=== PATIENT | female | born 1975 | race Caucasian/White ===

== ENCOUNTER 2022-02-22 06:04 | Day surgery (SDC) | payer OTHER ==
[~2022-02-22] VITALS: Ht 167.6 cm; Wt 99.2 kg
[2022-02-22] MEDS ORDERED: PRAV20 PO (06:32)
[2022-02-22] MEDS ORDERED: GEMF600 PO (06:33)
[2022-02-22] MEDS ORDERED: QUET300 PO (06:33)
[2022-02-22] MEDS ORDERED: PRED20 PO (06:34)
[2022-02-22] MEDS ORDERED: HYDPAM25 PO (06:34)
[2022-02-22] MEDS ORDERED: AMOCLA875 PO (06:35)
--- NOTE | 2022-02-22 06:59 | NUR ---
02/22/22 [address] ADDISON EXPIRATORY WHEEZES RIGHT SIDE. PHILIP NAIR ORDERED AND ADMINISTERED [id number]
--- NOTE | 2022-02-22 08:26 | NUR ---
02/22/22 0826 Osmin Lyman 1.5 ML'S 2% LIDOCAINE WITH EPI 1:100,000 DILUTED 1:1 WITH 1.5 ML'S 0.9% INJ NACL TO ACHIEVE SOLUTION OF 1% LIDOCAINE WITH EPI 1:200,000. SOLUTION VERIFIED BY ORSC.CARL AND ORSC.JJW. 3 ML'S OF 1% LIDOCAINE WITH EPI 1:200,[address] GRANADOS AT 0752.
== END 2022-02-22 11:05 | disposition home or self-care (01) ==
LOC: ORSCSDS 06:04
PROVIDERS: Otolaryngology
PROC: 8E09XBZ Computer Assisted Procedure of Head and Neck Region (ICD-10-PCS; principal; 2022-02-22 07:30)
PROC: 09DV4ZZ Extraction of Left Ethmoid Sinus, Percutaneous Endoscopic Approach (ICD-10-PCS; principal; 2022-02-22 07:30)
PROC: 09DU4ZZ Extraction of Right Ethmoid Sinus, Percutaneous Endoscopic Approach (ICD-10-PCS; principal; 2022-02-22 07:30)
DX: J32.4 Chronic pansinusitis (principal); E78.5 Hyperlipidemia, unspecified; Z87.891 Personal history of nicotine dependence; E66.9 Obesity, unspecified; Z68.35 Body mass index [BMI] 35.0-35.9, adult; Z79.899 Other long term (current) drug therapy
CPT/HCPCS: 88305; 88311; A9270; C2625; J0171; J1100; J2250; J2370; J2405; J2704; J3010; J7120

== ENCOUNTER 2024-07-31 06:11 | Day surgery (SDC) | payer OTHER ==
[~2024-07-31] VITALS: Ht 167.6 cm; Wt 95.5 kg
[2024-07-31] VITALS (13 sets, daily range): BP systolic 104–153; BP diastolic 56–99
[~2024-07-31 06:11] MED LIST: ALBU90OI INH; AMOCLA875 PO; GEMF600 PO; HYDPAM25 PO; PRAV20 PO; PRED20 PO; QUET300 PO; THERA-D2000 UNIT PO
[2024-07-31] MEDS ORDERED: CeFAZolin Sodium 2,000 MG in NS 100 ML IV SCH ×2 (06:35→14:00)
[2024-07-31] MEDS ORDERED: Lactated Ringer's 1,000 ML IV SCH ×2 (06:35→13:35)
[2024-07-31] MEDS ORDERED: FENO54 PO (06:42)
--- NOTE | 2024-07-31 07:01 | NUR ---
Ambulatory in Day Surgery History, Chart, Medications and Allergies reviewed before start of procedure.Lungs clear T/O to Auscultation. Patient confirms NPO status and agrees with scheduled surgery. Patient reports completing Chlorhexadine shower X2 prior to admission to hospital.Surgical site prepped with 2% Chlorhexidine cloth wipe. Patient States Post-Procedure ride home has been arranged.
[2024-07-31] MEDS ORDERED: Bupivacaine 0.5% HCl 5 MG/ML 30MLVIAL ONE (07:49)
[2024-07-31] MEDS ORDERED: Rocuronium Bromide 10 MG/ML 5ML Injection IV ONE ×3 (08:06→11:00)
[2024-07-31] MEDS ORDERED: FentaNYL Citrate 50 MCG/ML 5 ML Injection ONE (08:07)
[2024-07-31] MEDS ORDERED: propofoL 40 ML IV ONE (08:07)
[2024-07-31] MEDS ORDERED: Albuterol HFA200 ACT/6.7 GM INH ONE (08:22)
[2024-07-31] MEDS ORDERED: Albuterol HFA200 ACT/6.7 GM INH INH PRN (08:40)
[2024-07-31] MEDS ORDERED: Cholecalciferol 1000 Unit Tablet (=25MCG) PO SCH (09:00)
[2024-07-31] MEDS ORDERED: HydrOXYzine Pamoate 25 MG Cap PO SCH (09:00)
[2024-07-31] MEDS ORDERED: HYDROmorphone HCl/Pf 1MG SYR ONE ×2 (09:06→10:36)
[2024-07-31] MEDS ORDERED: Metoclopramide HCl 5MG / ML 2ML Vial ONE (09:40)
[2024-07-31] MEDS ORDERED: Ondansetron HCl 2 MG / ML 2ML Vial ONE (09:40)
[2024-07-31] MEDS ORDERED: Dexamethasone Sod Phos 10 MG/ML 1ML VIAL ONE (09:40)
[2024-07-31] MEDS ORDERED: FentaNYL Citrate 50 MCG/ML 2 ML Injection ONE (12:04)
[2024-07-31] MEDS ORDERED: Sugammadex Sodium 200 MG/2ML SDV (100 MG/ML) ONE (12:31)
[2024-07-31] MEDS ORDERED: HYDROmorphone HCl/Pf 1MG SYR IV PRN (13:30)
[2024-07-31] MEDS ORDERED: Promethazine HCl 12.5 MG Supp PR PRN (13:30)
[2024-07-31] MEDS ORDERED: Naloxone HCl 0.4MG / ML 1ML Vial IV PRN (13:35)
[2024-07-31] MEDS ORDERED: OxyCODONE 5 mg/Acetamin 325 mg TABLET PO PRN (13:35)
[2024-07-31] MEDS ORDERED: Simethicone 80 MG Chew PO PRN (13:35)
[2024-07-31] MEDS ORDERED: Ondansetron HCl 2 MG / ML 2ML Vial IV PRN (13:35)
[2024-07-31] MEDS ORDERED: Ondansetron 4 MG TAB PO PRN (13:35)
[2024-07-31] MEDS ORDERED: Promethazine HCl 25 MG Tab PO PRN (13:40)
[2024-07-31] MEDS ORDERED: Ketorolac Tromethamine 30mg Vial IV PRN (14:05)
--- NOTE | 2024-07-31 18:50 | NUR ---
SHIFT SUMMARY POD1 LAP HYSTER. PATIENT IS AOX4, AYESHA ORELLANA'D THIS EVENING. PATIENT ABLE TO VOID AND WALK IN ROOM SBA. LAP SITES X4 CLOSED WITH EXOFEN. C/D/I. TOLERATING SMALL AMOUNTS OF PO INTAKE. A FEW BOUGHTS OF NAUSEA TODAY MEDICATED WITH ZOFRAN. PATIENT VITALS SIGNS ARE STABLE AND NEEDS ARE MET AT THIS TIME. REPORT TO ONCOMING SHIFT.
[2024-07-31] MEDS ORDERED: Pravastatin Sodium 20 MG Tab PO SCH (21:00)
[2024-07-31] MEDS ORDERED: QUEtiapine Fumarate 300 MG Tab PO SCH (21:00)
[2024-08-01 04:13] VITALS: BP 110/63
[2024-08-01 04:51] LABS: BASOPHILS ABSOLUTE AUTO 0.15 K/mm3 (0.00-0.23); BASOPHILS PERCENT AUTO 1 % (0-2); EOSINOPHILS ABSOLUTE AUTO 0.08 K/mm3 (0.00-0.68); EOSINOPHILS PERCENT AUTO 1 % (0-6); Hematocrit 36.2 % (33.0-51.0); Hemoglobin 12.3 g/dL (11.5-16.0); IMMATURE GRAN ABSOLUTE AUTO 0.04 K/mm3 (0.00-0.10); IMMATURE GRAN PERCENT AUTO 0 % (0-1); LYMPHOCYTES ABSOLUTE AUTO 1.34 K/mm3 (0.84-5.20); LYMPHOCYTES PERCENT AUTO 9 % (21-46); MONOCYTES ABSOLUTE AUTO 1.03 K/mm3 (0.16-1.47); MONOCYTES PERCENT AUTO 7 % (4-13); Mean Corpuscular HGB 28.7 pg (26.0-34.0); Mean Corpuscular Volume 84 fL (80-100); Mean Platelet Volume 11.3 fL (9.1-12.4); NEUTROPHILS ABSOLUTE AUTO 12.23 K/mm3 (1.96-9.15); NEUTROPHILS PERCENT AUTO 82 % (41-73); Platelet Count 258 K/mm3 (150-400); RDW Coefficient Variation 13.3 % (11.7-14.2); RDW Standard Deviation 41.2 fL (35.1-46.3); Red Blood Cell Count 4.29 M/mm3 (3.80-5.20); White Blood Cell Count 14.87 K/mm3 (4.00-11.30)
[2024-08-01 07:26] VITALS: BP 115/62
--- NOTE | 2024-08-01 07:29 | NUR ---
SHIFT SUMMARY NOC. PT POD 1 FOR LAP/VAG ASSIST HYSTERECTOMY WITH DR. CASTELAN. PT LAP SITES X4 C/D/I. PT VOIDING URINE AND TOLERATING CLEAR LIQUIDS. PT REPORTS MILD NAUSEA BUT DENIES VOMITING. PT MEDICATED FOR PAIN WITH PERCOCET AND TORADOL WITH REPORTED RELIEF. PT REFUSED ABDOMINAL BINDER D/T PAIN. PT PASSING FLATUS THIS AM. CALL LIGHT IN REACH.
[2024-08-01] MEDS ORDERED: ESTR2 PO (08:59)
[2024-08-01] MEDS ORDERED: Fenofibrate 67 MG Cap PO SCH (09:00)
[2024-08-01] MEDS ORDERED: Percocet 5-3251 EACH PO (09:00)
[2024-08-01] MEDS ORDERED: Estradiol 1 MG Tab PO SCH (09:00)
--- NOTE | 2024-08-01 11:28 | NUR ---
DISCHARGE PATIENT IS TOLERATING PO INTAKE AND DENIES N/V. LAP SITES ARE C/D/I. MEDICATED FOR PAIN AND TOLERATING WELL. SCANT BLEEDING ON PERIPAD. ALL INSTRUCTIONS ARE READ AND SIGNED BY PATIENT. EDUCATED ON MEDS, AND ACTIVITIES AND FOLLOW UP CARE. PATIENT LEAVES WITH FAMILY PRIVATE CAR.
== END 2024-08-01 11:00 | disposition home or self-care (01) ==
LOC: ORSCMMR 06:11 → ORD 08:00 → ORSCMMR 08:00 → SURS 13:55 → ORSCMMR 13:55 → SURS 08-01 11:00 → ORSCMMR 08-01 11:00 → ORD 09-18 08:00
PROVIDERS: Obstetrics & Gynecology
PROC: 0JPV0HZ Removal of Contraceptive Device from Upper Extremity Subcutaneous Tissue and Fascia, Open Approach (ICD-10-PCS; principal; 2024-07-31 08:00)
PROC: 0DNU4ZZ Release Omentum, Percutaneous Endoscopic Approach (ICD-10-PCS; principal; 2024-07-31 08:00)
PROC: 0UB24ZZ Excision of Bilateral Ovaries, Percutaneous Endoscopic Approach (ICD-10-PCS; principal; 2024-07-31 08:00)
PROC: 0UT94ZZ Resection of Uterus, Percutaneous Endoscopic Approach (ICD-10-PCS; principal; 2024-07-31 08:00)
PROC: 0UB74ZZ Excision of Bilateral Fallopian Tubes, Percutaneous Endoscopic Approach (ICD-10-PCS; principal; 2024-07-31 08:00)
DX: N92.1 Excessive and frequent menstruation with irregular cycle (principal); N80.03 Adenomyosis of the uterus; D25.9 Leiomyoma of uterus, unspecified; N88.8 Other specified noninflammatory disorders of cervix uteri; J45.909 Unspecified asthma, uncomplicated; F31.9 Bipolar disorder, unspecified; Z79.899 Other long term (current) drug therapy
CPT/HCPCS: 36415; 85025; 86850; 86900; 86901; 88307; 94640; 94664; 94760; A9270; J0690; J1100; J1170; J1885; J2405; J2704; J2765; J3010; J7120; Q0177

== ENCOUNTER 2024-12-01 17:20 | Emergency (ER) | payer OTHER ==
[~2024-12-01] VITALS: Ht 167.6 cm; Wt 99.3 kg
[2024-12-01] MEDS ORDERED: NS 1,000 ML IV SCH ×2 (22:15→23:40)
[2024-12-01] MEDS ORDERED: Acetaminophen 500 MG Tab PO ONE (22:15)
[2024-12-01] MEDS ORDERED: Ketorolac Tromethamine 30mg Vial IV ONE (22:15)
[2024-12-01] MEDS ORDERED: levalbuterol HCL 1.25 MG/3 ML VIAL INH SCH (22:27)
[2024-12-01 22:37] LABS: CORONAVIRUS COVID-19 AG Negative (NEGATIVE); INFLUENZA A AG Negative (NEGATIVE); INFLUENZA B AG Negative (NEGATIVE)
[2024-12-01 23:12] LABS: Influenza A, PCR NEGATIVE (NEGATIVE); Influenza B, PCR NEGATIVE (NEGATIVE); Resp Syncytial Virus, PCR NEGATIVE (NEGATIVE); SARS-Cov-2 (COVID-19) PCR, MMC NEGATIVE (NEGATIVE)
[2024-12-02 02:49] VITALS: BP 113/65
[2024-12-02] MEDS ORDERED: levalbuterol HCL 1.25 MG/3 ML VIAL INH PRN (03:00)
== END 2024-12-02 03:03 | disposition home or self-care (01) ==
LOC: ER 17:20
PROVIDERS: Student in an Organized Health Care Education/Training Program
DX: R06.02 Shortness of breath (principal); K21.9 Gastro-esophageal reflux disease without esophagitis; E78.5 Hyperlipidemia, unspecified; F31.9 Bipolar disorder, unspecified; Z79.899 Other long term (current) drug therapy; Z79.01 Long term (current) use of anticoagulants
CPT/HCPCS: 0241U; 71260; 87428-QW; 93005; 93010; 94640; 94664; 96374-59; 99285-25; A9270; J1885; J7030; J7614; Q9967

== ENCOUNTER → 2024-12-01 | Outpatient (CLI) | payer OTHER ==
[~2024-12-01] MED LIST changes: +ESTR2 PO; +FENO54 PO; +Percocet 5-3251 EACH PO
[2024-12-01 16:05] LABS: BASOPHILS ABSOLUTE AUTO 0.08 K/mm3 (0.00-0.23); BASOPHILS PERCENT AUTO 1 % (0-2); EOSINOPHILS ABSOLUTE AUTO 0.61 K/mm3 (0.00-0.68); EOSINOPHILS PERCENT AUTO 6 % (0-6); Hematocrit 41.6 % (33.0-51.0); Hemoglobin 14.2 g/dL (11.5-16.0); IMMATURE GRAN ABSOLUTE AUTO 0.03 K/mm3 (0.00-0.10); IMMATURE GRAN PERCENT AUTO 0 % (0-1); LYMPHOCYTES PERCENT AUTO 3 % (21-46); MONOCYTES ABSOLUTE AUTO 0.64 K/mm3 (0.16-1.47); MONOCYTES PERCENT AUTO 6 % (4-13); Mean Corpuscular HGB 28.8 pg (26.0-34.0); Mean Corpuscular HGB Conc 34.1 g/dL (31.5-36.5); Mean Corpuscular Volume 84 fL (80-100); Mean Platelet Volume 10.5 fL (9.1-12.4); NEUTROPHILS ABSOLUTE AUTO 8.94 K/mm3 (1.96-9.15); NEUTROPHILS PERCENT AUTO 84 % (41-73); Platelet Count 251 K/mm3 (150-400); RDW Coefficient Variation 13.7 % (11.7-14.2); RDW Standard Deviation 41.9 fL (35.1-46.3); Red Blood Cell Count 4.93 M/mm3 (3.80-5.20)
[2024-12-01 16:19] LABS: Albumin, Blood 3.9 g/dL (3.4-5.0); Bilirubin, Total 0.4 mg/dL (0.1-1.0); Bun/Creatinine Ratio 11.1 (12.0-20.0); Calcium, Blood 9.5 mg/dL (8.5-10.1); Creatinine, Blood 1.08 mg/dL (0.40-1.00); Potassium, Blood 3.9 mmol/L (3.5-5.5); Total Protein, Blood 7.9 g/dL (6.4-8.2)
== END ==
LOC: LAB SHORT 16:01 → LAB 16:01
PROVIDERS: Physician Assistant
DX: R00.0 Tachycardia, unspecified (principal)
CPT/HCPCS: 80053; 84484; 85025; 85379

== ENCOUNTER 2025-03-05 20:04 | Emergency (ER) | payer OTHER ==
[~2025-03-05] VITALS: Ht 167.6 cm; Wt 99.8 kg
[2025-03-05 20:21] VITALS: BP 128/89
[2025-03-05] MEDS ORDERED: Ketorolac Tromethamine 15mg Vial IM ONE (21:15)
== END 2025-03-05 21:38 | disposition home or self-care (01) ==
LOC: ER 20:04
DX: S43.401A Unspecified sprain of right shoulder joint, initial encounter (principal); K21.9 Gastro-esophageal reflux disease without esophagitis; Z79.899 Other long term (current) drug therapy; E78.5 Hyperlipidemia, unspecified; W18.30XA Fall on same level, unspecified, initial encounter
CPT/HCPCS: 73030; 96372; 99283-25; J1885

== ENCOUNTER 2025-09-16 07:54 | Day surgery (SDC) | payer OTHER ==
[~2025-09-16] VITALS: Ht 167.6 cm; Wt 104.7 kg
[2025-09-16] MEDS ORDERED: CeFAZolin Sodium 2,000 MG VIAL ONE (08:08)
[2025-09-16] MEDS ORDERED: ACET500 (08:17)
[2025-09-16] MEDS ORDERED: Ipratropium/Albuterol SulF 2.5-0.5MG/3 ML Amp ONE (08:24)
[2025-09-16] MEDS ORDERED: Midazolam HCl 1MG / ML 2ML Vial ONE (09:00)
[2025-09-16] MEDS ORDERED: FentaNYL Citrate 50 MCG/ML 2 ML Injection ONE ×2 (09:00→11:57)
[2025-09-16] MEDS ORDERED: Dexmedetomidine HCL 200 MCG / 2 ML ONE (09:01)
--- NOTE | 2025-09-16 09:03 | NUR ---
09/16/25 0903 Ashlyn Beltran PER ORDERS PT HAD A DUONEB IN PREOP. AFTER DUONEB PT LUNGS WERE CTA.
[2025-09-16] MEDS ORDERED: Sugammadex Sodium 200 MG/2ML SDV (100 MG/ML) ONE (09:39)
[2025-09-16] MEDS ORDERED: ePHEDrine Sulfate 50 MG/ML 1ML Injection ONE (10:13)
[2025-09-16] MEDS ORDERED: Phenylephrine HCl 100 MCG/ML-NS 10MLSYR (1MG/10ML) ONE (10:36)
--- NOTE | 2025-09-16 12:11 | NUR ---
09/16/[address] AT BEDSIDE. VSS. PT DENIES PAIN/DIZZINESS/NAUSEA AT THIS TIME
--- NOTE | 2025-09-16 12:31 | NUR ---
09/16/25 1231 Carlene Conteh PT ASSISTED BY RN TO RECLINER. VSS. ON AT 2LPM VIA VT.
[2025-09-16] MEDS ORDERED: Ondansetron HCl 2 MG / ML 2ML Vial ONE (12:54)
[2025-09-16 13:01] VITALS: BP 111/67
== END 2025-09-16 13:20 | disposition home or self-care (01) ==
LOC: ORSCSDS 07:54
PROVIDERS: Orthopaedic Surgery
PROC: 0LM14ZZ Reattachment of Right Shoulder Tendon, Percutaneous Endoscopic Approach (ICD-10-PCS; principal; 2025-09-16 09:30)
PROC: 0RNJ4ZZ Release Right Shoulder Joint, Percutaneous Endoscopic Approach (ICD-10-PCS; principal; 2025-09-16 09:30)
DX: M75.121 Complete rotator cuff tear or rupture of right shoulder, not specified as traumatic (principal); M25.711 Osteophyte, right shoulder; J45.909 Unspecified asthma, uncomplicated; E66.9 Obesity, unspecified; Z68.37 Body mass index [BMI] 37.0-37.9, adult; Z79.899 Other long term (current) drug therapy; F31.9 Bipolar disorder, unspecified
CPT/HCPCS: C1713; J0166; J0690; J2250; J2371; J2405; J2704; J3010; J7120